=== PATIENT | female | born 1990 | race American Indian/Alaskan Native ===

== ENCOUNTER 2017-09-20 11:00 | Emergency (ER) | payer OTHER, MEDICAID ==
[2017-09-20 11:14] VITALS: BP 115/68
--- NOTE | 2017-09-20 12:33 | Emergency Department Report ---
Blank Doc - Documentation Documentation: Patient is a 27-year-old Female who's had approximately 1 week of cough cold congestion. Patient states it hurts when she coughs. Patient states she also has mild sore throat and pain in her ribs. Patient is was started on amoxicillin initially by her EQUIPMENT OILER and switch to Z-Melecio. Patient also has been using albuterol inhaler and was given Tamiflu as well. Patient's lungs were clear to auscultation she is 100% on room air. I do not believe a chest x-ray is warranted at this time. However patient will get a Monospot and rapid strep to see if either one of these will be positive.
--- NOTE | 2017-09-20 14:22 | XRay Report ---
ROUTINE CHEST, TWO VIEWS: HISTORY: Cough. The trachea, heart, mediastinal contour, lung ayala and bony thorax are unremarkable. IMPRESSION: Unremarkable chest x-ray.
--- NOTE | 2017-09-20 14:58 | Emergency Department Report ---
Minor Respiratory - HPI Chief Complaint: Upper Respiratory Infection Stated Complaint: COUGH Time Seen by Provider: 09/20/17 12:22 Duration: 1 week Pain Location: Other (cough) Minor Respiratory: Yes Rhinorrhea (nasal congestion, PND), Yes Able to Tolerate Fluids, Yes Cough (1 week), No Ear Pain, No Sick Contacts, No Hemoptysis, No Chest Pain, No Shortness of Breath, No Fever Other History: This is a 27-year-old female sent here from her PEDIATRIC PHYSICIAN ASSISTANT office that saw her at 9 this morning. Patient has been treated with amoxicillin for 3 days and was stopped and started on Zithromax which she says she took 4 days and her last status tomorrow. She says she's been taking this for cough for one week and her cough is not getting better. She denies any fever or chills. Denies any nausea or vomiting. Patient is 21 weeks and she is not having any problem with her . She denies any abdominal pain vaginal bleeding or vaginal discharge. When asked, babies moving appropriately. Patient says PEDIATRIC PHYSICIAN ASSISTANT sent her over here for a chest x-ray due to ongoing coughing. She is also taking loratadine and Benzonate. She denies also taking albuterol that was prescribed by her PEDIATRIC PHYSICIAN ASSISTANT. Patient reports that she was given Tamiflu but she did not R was not tested for the flu. Patient denies any pain. ED Review of Systems ROS: Stated complaint: COUGH Other details as noted in HPI Comment: All other systems reviewed and negative Constitutional: no symptoms reported Eyes: denies: eye pain, eye discharge ENT: congestion. denies: ear pain, throat pain, dental pain, epistaxis Respiratory: cough. denies: orthopnea, shortness of breath, SOB with exertion, SOB at rest, stridor, wheezing Cardiovascular: denies: chest pain, palpitations, dyspnea on exertion, edema, syncope, paroxysmal nocturnal dyspnea Gastrointestinal: denies: abdominal pain, nausea, vomiting, diarrhea, constipation, hematemesis, melena, hematochezia Genitourinary: denies: urgency, dysuria, frequency, hematuria, discharge Musculoskeletal: denies: back pain, arthralgia, myalgia Skin: denies: rash Neurological: denies: headache, weakness, paresthesias, confusion, abnormal gait ED Past Medical Hx - Past Medical History Previous Medical History?: No - Surgical History Past Surgical History?: No - Family History Family history: no significant - Social History Smoking Status: Never Smoker Substance Use Type: None - Medications Home Medications: Home Medications Medication Instructions Recorded Confirmed Last Taken Type Cetirizine HCl [ZyrTEC] 10 mg PO QAM 7 Days #7 capsule 09/20/17 Unknown Rx Sodium Chloride [Nasal [place]] 90 ml NS TID PRN #1 spray 09/20/17 Unknown Rx predniSONE [Deltasone] 10 mg PO QDAY 5 Days #5 tab 09/20/17 Unknown Rx Minor Respiratory Exam - Exam General: Vital signs noted. No distress. Alert and acting appropriately. This is a 27-year-old female well-nourished well-developed in no acute distress. Patient is nontoxic in appearance HEENT: Yes Moist Mucous Membranes, No Pharyngeal Erythema (uvula is midline and oral airways patent), No Pharyngeal Exudates (no peritonsillar abscess), No Rhinorrhea (Nasal congestion and erythema), No Conjuctival Injection, No Frontal Tenderness, No Maxillary Tenderness Ear: Neither TM Bulge (bilateral TM congested), Neither TM Erythema, Neither EAC Pain, Neither EAC Discharge Neck: Yes Supple (full range of motion), No Adenopathy Lungs: Yes Good Air Exchange, Yes Cough (dry cough), No Wheezes, No Ronchi, No Stridor, No Labored Respirations, No Retractions, No Use of Accessory Muscles, No Other Abnormal Lung Sounds Heart: Yes Regular (S1, S2), No Murmur Abdomen: Yes Tenderness (nontender to palpate in all quadrants, no guarding or rebound tenderness), Yes Normal Bowel Sounds (in all quadrants), No Peritoneal Signs Skin: No Rash, No Edema Neurologic: Alert and oriented 3, no deficits. Musculoskeletal: Unremarkable. Extremity: No clubbing, cyanosis or edema. +2 pulses to all extremities and no neurovascular compromise ED Course Vital Signs 09/20/17 11:09 Temperature 98.4 F Pulse Rate 105 H Respiratory 18 Rate Blood Pressure 115/68 O2 Sat by Pulse 100 Oximetry Vital Signs 09/20/17 09/20/17 11:09 15:12 Temperature 98.4 F Pulse Rate 105 H 92 H Respiratory 18 Rate Blood Pressure 115/68 O2 Sat by Pulse 100 Oximetry - Reevaluation(s) Reevaluation #1: 09/20/17 15:02 Patient stable throughout ED stay ED Medical Decision Making - Lab Data Lab Results 09/20/17 09/20/17 Range/Units 12:34 13:00 Monoscreen Negative (Negative) Group A Strep Rapid Negative (Negative) Strep culture pending - Radiology Data Radiology results: report reviewed Chest x-ray reveals no acute cardiopulmonary processes - Medical Decision Making ED course: Patient sent from PEDIATRIC PHYSICIAN ASSISTANT office for chest x-ray due to prolonged coughing for over a week. She's been on multiple antibiotics, cough medicine, Claritin, albuterol and says that she is not getting relief of cough. Physical findings were upper respiratory infection with cough and congestion. I discussed diagnosis and treatment plan the patient. I discussed that she needs to call Dr. Fabian Gaytan at my P[facility]IATR[facility] PHYSICIAN [facility]IST[facility] for that are no findings in the emergency room. I discussed her strep and mono test results with her and also x-ray results. Patient is stable. Patient to call her PEDIATRIC PHYSICIAN ASSISTANT and schedule an appointment follow-up visit in 1 day. I discussed treatment plan with her and told her I will switch her to Zyrtec and place her on 5 days worth of prednisone. I discussed this case with Dr. Eladio Bhagat who is the attending ED physician and she saw patient's and agrees with treatment plan. Critical care attestation.: If time is entered above; I have spent that time in minutes in the direct care of this critically ill patient, excluding procedure time. ED Disposition Clinical Impression: Upper respiratory infection with cough and congestion Disposition: DC-01 TO HOME OR SELFCARE Is pt being admited?: No Does the pt Need Aspirin: No Condition: Stable Instructions: Upper Respiratory Infection (ED), Acute Cough (ED) Additional Instructions: Please increase her fluid intake Flush nostrils with saline nasal spray Please call your PEDIATRIC PHYSICIAN ASSISTANT office tomorrow or this event and schedule an appointment for follow-up visit tomorrow. Stop taking loratadine and start taking Zyrtec and prednisone as prescribed Prescriptions: Cetirizine HCl [ZyrTEC] 10 mg PO QAM 7 Days #7 capsule predniSONE [Deltasone] 10 mg PO QDAY 5 Days #5 tab Sodium Chloride [Nasal [place]] 90 ml NS TID PRN #1 spray PRN Reason: Congestion Referrals: follow up with, PEDIATRIC PHYSICIAN ASSISTANT [Other] - 09/21/17 Forms: Accompanied Note, Work/School Release Form(ED)
== END 2017-09-20 15:59 | disposition home or self-care (01) ==
LOC: ED 11:00
DX: J06.9 Acute upper respiratory infection, unspecified (principal); Z88.2 Allergy status to sulfonamides
CPT/HCPCS: 36415; 71046; 86308; 87116; 87430

== ENCOUNTER 2018-01-16 11:59 | Outpatient (CLI) | payer MEDICAID, OTHER ==
[2018-01-16 12:46] VITALS: BP 126/87
== END 2018-01-16 13:40 | disposition home or self-care (01) ==
LOC: TRG 11:59
PROVIDERS: ATTEND Obstetrics & Gynecology
DX: O47.1 False labor at or after 37 completed weeks of gestation (principal); Z3A.38 38 weeks gestation of pregnancy
CPT/HCPCS: 59025

== ENCOUNTER 2018-01-16 18:41 | Inpatient (IN) | payer MEDICAID ==
[2018-01-16] MEDS ORDERED: SUBLIMAZE IV PRN (18:45)
[2018-01-16] MEDS ORDERED: MINERAL OIL PO PRN (18:45)
[2018-01-16] MEDS ORDERED: BRETHINE IVP PRN (18:45)
[2018-01-16] MEDS ORDERED: NARCAN 0.4 MG/1 ML IV PRN (18:45)
[2018-01-16] MEDS ORDERED: BRETHINE SUB-Q PRN (18:45)
[2018-01-16] MEDS ORDERED: XYLOCAINE 2% INFILTRATI ONE (18:45)
[2018-01-16] MEDS ORDERED: ZOFRAN IV PRN (18:45)
[2018-01-16] MEDS ORDERED: PITOCin/NS 30 UNIT/500ML 30 UNITS/500 ML BAG IV SCH (19:00)
[2018-01-16] MEDS ORDERED: LACTATED RINGERS 1,000 ML ONE (19:04)
[2018-01-16] MEDS ORDERED: STADOL IV PRN (19:08)
[2018-01-16] MEDS: LACTATED RINGERS 1,000 ML IV SCH ×2 (19:11→20:33)
[2018-01-16] MEDS ORDERED: ePHEDrine SULFATE IV PRN ×2 (19:45→20:57)
[2018-01-16 20:09] LABS: Hematocrit 37.6 % (30.3-42.9); Hemoglobin 12.5 gm/dl (10.1-14.3); Mean Corpuscular HGB Conc 33 % (30-34); Mean Corpuscular Hemoglobin 32 pg (28-32); Mean Corpuscular Volume 96 fl (79-97); Platelet Count 143 K/mm3 (140-440); Red Cell Distribution Width 14.2 % (13.2-15.2)
[2018-01-16] MEDS ORDERED: NARCAN 2 MG/2 ML IV PRN (20:57)
[2018-01-16] MEDS ORDERED: fentaNYL-BUPIV 2 MCG/ML-0.125% 200 MCG/100 ML BAG EPIDURAL SCH (21:00)
--- NOTE | 2018-01-16 21:35 | History and Physical Report ---
History of Present Illness Date of examination: 01/16/18 Date of admission: 01/16/18 18:41 Chief complaint: contractions History of present illness: Pt is a 27 year old -[place] female VIKTOR 01/31/18 at 37w6d who presents with regular contractions and advanced cervical dilation of 5 cm. She denies leakage of fluid or vaginal bleeding. She has had care at [facility] since 7 wks complicated by UTI s/p treatment, genital herpes without lesion or prodrome, pyelectasis followed by MFM and LGA followed by MFM and resolved per MFM note on 12/06/17. She is GBS negative. 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 History: chlamydia (remote from this , treated ), herpes Family/Genetic History: none Social history: no significant social history - Obstetrical History Expected Date of Delivery: 01/31/18 Actual Gestation: 37 Week(s) 6 Day(s) : 5 Para: 0 Hx # Term Pregnancies: 0 Number of Pregnancies: 0 Spontaneous Abortions: 0 Induced : 4 Number of Living Children: 0 Medications and Allergies Allergies Allergy/AdvReac Type Severity Reaction Status Date / Time Sulfa (Sulfonamide Allergy Unknown Verified 09/20/17 11:14 Antibiotics) Home Medications Medication Instructions Recorded Confirmed Last Taken Type Cetirizine HCl [ZyrTEC] 10 mg PO QAM 7 Days #7 capsule 09/20/17 01/16/18 1 Day Ago Rx ~01/15/18 Pnv,Calcium 72/Iron/Folic Acid 1 tab PO DAILY 01/16/18 01/16/18 01/16/18 History [Pnv Plus Multivit Tab] 1 Active Meds: Active Medications Butorphanol Tartrate (Stadol) 2 mg IV Q2H PRN PRN Reason: Pain , Severe (7-10) Ephedrine Sulfate (Ephedrine Sulfate) 10 mg IV Q2M PRN PRN Reason: Hypotension Last Admin: 01/16/18 20:48 Dose: 10 mg Ephedrine Sulfate (Ephedrine Sulfate) 10 mg IV Q2M PRN PRN Reason: Hypotension Fentanyl (Sublimaze) 100 mcg IV Q2H PRN PRN Reason: Labor Pain Last Admin: 01/16/18 19:30 Dose: 100 mcg Lactated Ringer's (Lactated Ringers) 1,000 mls @ 125 mls/hr IV DIRECT CIERRA Last Admin: 01/16/18 20:33 Dose: 125 mls/hr Oxytocin/Sodium Chloride (Pitocin/Ns 20 Unit/1000ml Drip) 20 units in 1,000 mls @ 125 mls/hr IV DIRECT CIERRA Oxytocin/Sodium Chloride (Pitocin/Ns 30 Unit/500ml) 30 units in 500 mls @ 4 mls /hr IV TITR CIERRA; Protocol Fentanyl/Bupivacaine/Sodium Chlor (Fentanyl-Bupiv 2 Mcg/Ml-0.125%) 200 mcg in 100 mls @ 12 mls/hr EPIDURAL TITR CIERRA; Protocol Mineral Oil (Mineral Oil) 30 ml PO QHS PRN PRN Reason: Constipation Naloxone HCl (Narcan 0.4 Mg/1 Ml) 0.1 mg IV Q2MIN PRN PRN Reason: Res Rate </= 8 or 02 SAT < 92% Naloxone HCl (Narcan 2 Mg/2 Ml) 0.2 mg IV Q5M PRN PRN Reason: Respiratory sedation Ondansetron HCl (Zofran) 4 mg IV Q8H PRN PRN Reason: Nausea And Vomiting Terbutaline Sulfate (Brethine) 0.25 mg SUB-Q ONCE PRN PRN Reason: Hyperstimulation/Hypertonicity Terbutaline Sulfate (Brethine) 0.25 mg IVP ONCE PRN PRN Reason: Hyperstimulation/Hypertonicity Review of Systems All systems: negative - Vital Signs Vital signs: Vital Signs Pulse BP 73 134/76 01/16/18 19:49 01/16/18 19:49 Temp Pulse Resp BP Pulse Ox 98.8 F 95 H 20 135/70 99 01/16/18 19:50 01/16/18 21:37 01/16/18 19:50 01/16/18 21:31 01/16/18 21:37 - Physical Exam Breasts: Positive: deferred Cardiovascular: Regular rate Lungs: Positive: Clear to auscultation Abdomen: Positive: soft (gravid ) Genitourinary (Female): Positive: normal external genitalia Uterus: Positive: enlarged (gravid ) Extremities: Positive: normal - Obstetrical FHR: auscultation normal Uterine Contraction Monitor Mode: External Cervical Dilatation: 5 Cervical Effacement Percentage: 100 station: -1 Uterine Contraction Pattern: Regular Uterine Tone Measurement Phase: Resting Uterine Contraction Intensity: Strong/Firm Results Result Diagrams: 01/16/18 Unknown Abnormal lab results 01/16/18 Range/Units Unknown WBC 11.3 H (4.5-11.0) K/mm3 All other labs normal. Assessment and Plan A: IUP at 37w6d Active labor Thrombocytopenia Genital herpes without lesion or prodrome GBS negative P: Admit to labor and delivery Routine intrapartum care Closely monitor maternal and status
--- NOTE | 2018-01-16 22:09 | Event Note ---
Date: 01/16/18 Pt now comfortable with epidural. FHTs Category I. SVE: /0/BBOW. AROM- thick green meconium. Continue routine intrapartum care. Plan to notify NICU.
[2018-01-17] MEDS: LACTATED RINGERS 1,000 ML IV SCH (02:40)
[2018-01-17] MEDS ORDERED: REGLAN IV ONE (03:09)
[2018-01-17] MEDS ORDERED: BICITRA PO ONE (03:09)
[2018-01-17] MEDS ORDERED: PEPCID IV ONE (03:09)
--- NOTE | 2018-01-17 03:09 | Event Note ---
Date: 01/17/18 Despite being complete for over 5 hours, the patient remains undelivered at +2 station with no further descent for an hour. Plan to proceed with primary section.
[2018-01-17] MEDS ORDERED: METHERGINE IM ONE (03:36)
[2018-01-17] MEDS ORDERED: CYTOTEC VG ONE (03:36)
[2018-01-17] MEDS ORDERED: LACTATED RINGERS 1,000 ML IV SCH (04:00)
[2018-01-17] MEDS ORDERED: PITOCin/NS 20 UNIT/1000ML DRIP 20 UNITS/1,000 ML BAG IV SCH ×2 (04:00→12:00)
[2018-01-17] MEDS ORDERED: ANCEF/STERILE WATER 2 GM/20 ML 2 GM/20 ML SYRINGE IV NR (04:00)
[2018-01-17] MEDS ORDERED: SUBLIMAZE ONE ×2 (04:05→04:59)
[2018-01-17] MEDS ORDERED: XYLOCAINE MPF 2% ONE ×3 (04:06→05:01)
[2018-01-17] MEDS ORDERED: LACTATED RINGERS 1,000 ML ONE (04:08)
[2018-01-17] MEDS ORDERED: TORADOL ONE (05:00)
[2018-01-17] MEDS: PITOCin/NS 20 UNIT/1000ML DRIP 20 UNITS/1,000 ML BAG IV SCH ×2 (05:45→07:00)
[2018-01-17] MEDS ORDERED: DEMEROL ONE (06:40)
--- NOTE | 2018-01-17 07:10 | Operative Report ---
Operative Report Operative Report: Date of procedure: 01/17/18 Preoperative diagnosis: 1) IUP at 38w0d 2) Arrest of Descent Postoperative diagnosis: Same Procedure: Primary low transverse section Surgeon: Evangelina Gaytan M.D. Anesthesia: Epidural Findings: 1) Viable male , Apgars 8 and 9, weight 3545 g, (7 lb 13 oz) in vertex presentation 2) Normal-appearing uterus ovaries and tubes Estimated blood loss: 500 mL IV fluids: 1000 mL Urine output: 300 mL Drains: Degroot to gravity Specimens: Placenta to pathology Complications: None. Counts correct x 3 Disposition: Stable to PACU Indication for procedure: Pt is a 27 year old female at 38w0d who was admitted in active labor, progressed to complete, but could not advance beyond +2 station despite adequate contractility over greater than one hour. The decision was made to proceed with primary section. Operation in detail: After the risks, benefits, alternatives and complications were explained to the patient she gave informed consent for the procedure. She was subsequently taken to the operating room where epidural anesthesia was noted to be adequate. She was subsequently placed in the dorsal supine position with leftward tilt and prepped and draped in a normal sterile fashion. heart tones were noted prior to incision. A timeout was performed. A Pfannenstiel skin incision was made with the knife and carried down to the layer of the fascia with the Bovie. The fascia was incised in the midline and the fascial incision was extended bilaterally with the Bovie. Attention was then turned to the superior aspect of the incision which was grasped with two Kochers, tented up, and dissected off the rectus muscles. Attention was then turned to the inferior aspect of the incision which was grasped with two Kochers , tented up and dissected off the rectus muscles. The rectus muscles were then in the midline. The peritoneum was then entered bluntly. The peritoneal incision was extended with good visualization of the bladder. The peritoneal incision was then stretched. An Stewart self-retaining retractor was placed for visualization. The bladder blade was placed. The vesicouterine peritoneum was grasped with smooth pickups and incised with Metzenbaum scissors. Metzenbaum scissors were used to extend the incision bilaterally. The bladder flap was then created digitally and the bladder blade was replaced. A transverse incision was made in the lower uterine segment with a knife and extended bilaterally with the bandage scissors. The head was delivered without difficulty followed by shoulders and body. was bulb suctioned at delivery. The cord was clamped and cut and the was handed to NICU staff in attendance. Cord blood was collected. The placenta was then delivered manually. The uterus was then exteriorized and cleared of all clots and debris. The hysterotomy was then reapproximated with 0 Vicryl in a running locked fashion. A second layer of the same suture was used in imbricating fashion. The hysterotomy was inspected and hemostasis was noted. The Stewart self-retaining retractor was removed. The gutters were irrigated and cleared of all clots and debris. The hysterotomy was again inspected and noted to be hemostatic. Surgicel was placed over the hysterotomy. The peritoneum was reapproximated with 2-0 Vicryl in a running fashion incorporating the rectus muscles. The fascia was reapproximated with 0 Vicryl in a running fashion. The subcutaneous tissue was reapproximated with 3-0 Vicryl in a running fashion. The skin was reapproximated with 4-0 Vicryl in a subcuticular fashion. The incision was then covered with steri strips and a pressure dressing. The procedure was then ended. The patient tolerated the procedure well and was taken to the PACU in stable condition. All instrument, lap, and needle counts were correct 3.
--- NOTE | 2018-01-17 07:10 | Procedure Note ---
OB Delivery Note - Delivery Date of Delivery: 01/17/18 Surgeon: JAYE NOONAN Estimated blood loss: 500cc - Section Preop diagnosis: arrest of descent Postop diagnosis: same section procedure: section, primary low transverse Disposition: PACU Complications: none Narrative: Please see operative note. - A at 1 minute: 8 at 5 minutes: 9 Gender: Male (3545g (7lb 13oz) @ 0431 am)
[2018-01-17] MEDS ORDERED: DILAUDID IV ONE (11:00)
[2018-01-17] MEDS ORDERED: LANSINOH TP PRN (11:31)
[2018-01-17] MEDS ORDERED: TUCKS PAD TP PRN (11:31)
[2018-01-17] MEDS ORDERED: NARCAN 0.4 MG/1 ML IV PRN (11:31)
[2018-01-17] MEDS ORDERED: TYLENOL PO PRN (11:31)
[2018-01-17] MEDS ORDERED: SODIUM CHLORIDE FLUSH SYRINGE 10 ML IV NR (12:00)
[2018-01-17] MEDS ORDERED: D5LR 1,000 ML IV SCH (12:00)
--- NOTE | 2018-01-17 12:28 | Progress Note ---
Assessment and Plan - Patient Problems (1) delivery delivered Current Visit: Yes Status: Acute (2) Febrile Current Visit: Yes Status: Acute Plan to address problem: Initiate IV antibiotics and improved pain control Subjective - Subjective Date of service: 01/17/18 Interval history: The patient is tolerating ice chips and water. She denies any nausea. Pain has not been adequately controlled. The patient experience mildly elevated temperatures and will subsequently be initiated on antibiotics Patient reports: no pain well controlled : doing well Objective - Vital Signs Latest vital signs: Vital Signs Temp Pulse Resp BP BP Pulse Ox 01/17/18 11:01 16 01/17/18 07:20 99.3 F 95 H 18 125/77 95 01/17/18 06:40 99.5 F 89 13 124/79 97 01/17/18 06:35 100 H 19 127/77 98 01/17/18 06:25 94 H 18 125/763 98 01/17/18 06:20 97 H 18 124/80 98 01/17/18 06:05 98 H 19 126/76 99 01/17/18 05:50 96 H 18 128/82 100 18 05:35 97 H 19 128/82 100 18 05:30 103 H 19 127/77 99 18 05:28 99.2 F 14 125/67 01/17/18 03:46 114 H 135/63 18 03:31 129 H 127/69 18 03:29 131 H 100 01/17/18 03:24 115 H 98 01/17/18 03:19 117 H 97 18 03:16 109 H 129/75 18 03:14 119 H 97 18 03:09 120 H 100 18 03:07 119 H 90 01/17/18 03:04 108 H 100 01/17/18 03:01 103 H 140/63 18 02:59 106 H 100 18 02:54 116 H 100 18 02:49 137 H 100 18 02:43 111 H 60 L 01/17/18 02:42 117 H 0 L 01/17/18 02:38 121 H 100 01/17/18 02:33 119 H 100 18 02:31 103 H 135/73 01/17/18 02:28 121 H 100 01/17/18 02:23 112 H 100 18 02:18 113 H 100 01/17/18 02:15 112 H 136/75 01/17/18 02:13 115 H 99 01/17/18 02:08 110 H 100 01/17/18 02:03 110 H 100 01/17/18 02:01 49 L 01/17/18 02:00 99.4 F 01/17/18 01:58 133 H 61 L 01/17/18 01:55 108 H 89 01/17/18 01:53 124 H 100 01/17/18 01:48 142 H 99 01/17/18 01:47 127 H 133/66 01/17/18 01:43 89 79 L 01/17/18 01:39 37 L 01/17/18 01:38 94 H 81 L 01/17/18 01:32 111 H 100 01/17/18 01:30 113 H 103/56 01/17/18 01:27 109 H 100 01/17/18 01:22 104 H 98 01/17/18 01:17 104 H 100 01/17/18 01:15 101 H 105/59 01/17/18 01:12 101 H 100 01/17/18 01:07 102 H 100 01/17/18 01:02 104 H 100 01/17/18 01:01 107 H 107/55 01/17/18 00:57 110 H 100 01/17/18 00:52 103 H 100 01/17/18 00:47 109 H 100 01/17/18 00:46 101 H 105/55 18 00:42 112 H 100 18 00:37 116 H 100 18 00:32 114 H 100 18 00:31 107 H 119/64 18 00:27 109 H 100 18 00:22 121 H 100 18 00:17 123 H 99 18 00:16 114 H 119/70 01/17/18 00:12 104 H 100 18 00:07 105 H 100 01/17/18 00:02 103 H 100 01/17/18 00:01 97 H 120/71 01/17/18 00:00 99.7 F H 20 18 23:57 112 H 99 18 23:52 103 H 99 18 23:47 102 H 99 18 23:46 109 H 125/78 18 23:42 108 H 100 18 23:37 95 H 99 18 23:32 113 H 99 01/16/18 23:31 96 H 134/79 01/16/18 23:27 95 H 98 18 23:22 95 H 99 18 23:17 94 H 134/78 99 01/16/18 23:12 92 H 99 01/16/18 23:07 92 H 100 01/16/18 23:02 92 H 99 01/16/18 23:01 89 136/76 01/16/18 22:57 86 99 01/16/18 22:52 110 H 100 01/16/18 22:49 82 88 01/16/18 22:47 95 H 100 01/16/18 22:46 88 119/73 18 22:42 89 98 01/16/18 22:37 94 H 99 01/16/18 22:32 87 99 01/16/18 22:30 88 125/75 01/16/18 22:27 94 H 100 01/16/18 22:22 90 100 18 22:17 87 99 01/16/18 22:16 79 133/77 01/16/18 22:12 92 H 100 01/16/18 22:07 96 H 100 01/16/18 22:02 99 H 100 01/16/18 22:00 98.6 F 78 127/73 01/16/18 21:57 91 H 96 18 21:52 108 H 100 18 21:47 104 H 100 18 21:46 81 116/73 01/16/18 21:42 105 H 99 18 21:37 95 H 99 18 21:32 91 H 99 18 21:31 84 135/70 01/16/18 21:27 73 100 01/16/18 21:22 77 100 01/16/18 21:17 83 122/74 100 01/16/18 21:12 82 100 01/16/18 21:09 88 118/62 01/16/18 21:07 91 H 118/60 100 01/16/18 21:05 83 127/74 01/16/18 21:03 82 134/75 01/16/18 21:02 84 96 01/16/18 21:01 82 139/74 01/16/18 20:59 72 139/74 01/16/18 20:57 78 137/74 97 01/16/18 20:55 69 141/74 01/16/18 20:53 85 115/63 01/16/18 20:52 87 99 01/16/18 20:51 96 H 112/63 01/16/18 20:49 103 H 117/62 01/16/18 20:47 99 H 99 01/16/18 20:45 93 H 125/78 01/16/18 20:42 97 H 98 01/16/18 20:37 103 H 98 01/16/18 20:32 96 H 98 01/16/18 20:27 98 H 97 01/16/18 19:50 98.8 F 73 20 134/76 01/16/18 19:49 73 134/76 Intake and Output 01/16/18 01/17/18 01/17/18 22:59 06:59 14:59 Intake Total 071.445 5822.583 356.25 Output Total 400 100 Balance 160.827 6236.583 256.25 Intake: IV 381.345 2577.583 281.25 Lactated Ringers 1,000 ml 170.833 764.583 @ 125 mls/hr IV DIRECT CIERRA Rx#:[id number] Left Wrist 125 PITOCin/NS 20 UNIT/1000ML 156.25 DRIP 20 units In 1,000 ml @ 125 mls/hr IV DIRECT CIERRA Rx#:[id number] Oral 75 Output: Urine 400 100 Uretheral (Degroot) 100 Other: Total, Intake Amount 75 Weight 77.111 kg - Exam Incision: Present: dressed - Labs Labs: Abnormal lab results 01/16/18 Range/Units Unknown WBC 11.3 H (4.5-11.0) K/mm3
[2018-01-17] MEDS: UNASYN/NS 3 GM/100 ML 3 GM/100 ML BAG IV SCH ×2 (12:46→19:00)
[2018-01-17] MEDS: TORADOL IV PRN (12:56)
[2018-01-17] MEDS: PERCOCET 5/325 PO PRN ×2 (17:07→21:30)
[2018-01-17 23:12] LABS: Hematocrit 33.3 % (30.3-42.9); Hemoglobin 11.3 gm/dl (10.1-14.3)
[2018-01-18] MEDS: UNASYN/NS 3 GM/100 ML 3 GM/100 ML BAG IV SCH ×4 (00:28→20:20)
[2018-01-18] MEDS: TORADOL IV PRN (00:31)
[2018-01-18] MEDS: PERCOCET 5/325 PO PRN ×2 (09:02→15:00)
--- NOTE | 2018-01-18 12:19 | Progress Note ---
Assessment and Plan A/P POD1 s/p csec FTP chorio-endomyometritis on unasyn continue present mgt Subjective - Subjective Date of service: 01/18/18 Principal diagnosis: s/p csec/ chorio Patient reports: appetite normal, voiding normally, pain well controlled, ambulating normally, no flatus : doing well Objective - Vital Signs Latest vital signs: Vital Signs Temp Pulse Resp BP BP Pulse Ox 01/18/18 09:01 99.7 F H 98 H 20 130/84 97 01/18/18 04:30 98.2 F 114 H 20 113/78 96 01/18/18 00:31 18 01/17/18 23:24 98.9 F 109 H 20 123/72 97 01/17/18 21:30 18 01/17/18 20:25 99.1 F 111 H 20 112/76 98 01/17/18 18:05 99.4 F 112 H 20 125/87 98 01/17/18 12:52 99.0 F 116 H 18 125/85 97 Intake and Output 01/17/18 01/18/18 01/18/18 23:59 07:59 15:59 Intake Total 220 340 Output Total 1900 1200 Balance -1680 -860 Intake: IV 100 100 UNASYN/NS 3 GM/100 ML 3 100 100 gm In 100 ml @ 200 mls/hr IV Q6HR [facility] Rx#: [id number] Oral 120 240 Output: Urine 1900 1200 Indwelling Catheter 900 Uretheral (Degroot) 400 Void 400 1200 Other: Total, Intake Amount 120 240 Total, Output Amount 400 600 Voiding Method Indwelling Catheter # Voids Void 1 2 - Exam Breasts: Present: normal Cardiovascular: Present: Regular rate, Normal S1 Lungs: Present: Clear to auscultation, Normal air movement Abdomen: Present: normal appearance, soft, normal bowel sounds. Absent: distention, tenderness, guarding Vulva: both: normal Uterus: Present: normal, firm, fundal height below umbilicus. Absent: bogginess , tenderness Extremities: Present: normal Deep Tendon Reflex Grade: Normal +2 Incision: Present: normal, dry, intact, dressed
[2018-01-18] MEDS: MOTRIN PO PRN (18:30)
[2018-01-19] MEDS: UNASYN/NS 3 GM/100 ML 3 GM/100 ML BAG IV SCH ×4 (02:21→22:05)
[2018-01-19] MEDS: PERCOCET 5/325 PO PRN ×3 (06:15→16:07)
--- NOTE | 2018-01-19 08:10 | Progress Note ---
Assessment and Plan A/P POD2 s/p csec FTP has some pain -around clock pain meds encourage IS and ambulation mag citrate for bowels chorio-endomyometritis on unasyn continue present mgt Subjective - Subjective Date of service: 01/19/18 Principal diagnosis: s/p csec/ chorio Patient reports: appetite normal, voiding normally, pain well controlled, ambulating normally, no flatus [place]: doing well Objective - Vital Signs Latest vital signs: Vital Signs Temp Pulse Resp BP Pulse Ox 01/19/18 00:00 98.7 F 64 16 104/69 01/18/18 16:37 98.0 F 114 H 20 124/87 98 01/18/18 09:01 99.7 F H 98 H 20 130/84 97 Intake and Output 01/18/18 01/19/18 01/19/18 23:59 07:59 15:59 Intake Total 340 300 Balance 340 300 Intake: IV 100 UNASYN/NS 3 GM/100 ML 3 100 gm In 100 ml @ 200 mls/hr IV Q6HR [facility] Rx#: [id number] Oral 240 Intake, Free Water 300 Other: Total, Intake Amount 240 # Voids Void 1 - Exam Breasts: Present: normal Cardiovascular: Present: Regular rate, Normal S1 Lungs: Present: Clear to auscultation, Normal air movement Abdomen: Present: normal appearance, soft, normal bowel sounds. Absent: distention, tenderness, guarding Vulva: both: normal Uterus: Present: normal, firm, fundal height below umbilicus. Absent: bogginess Extremities: Present: normal Deep Tendon Reflex Grade: Normal +2 Incision: Present: normal, dry, intact
[2018-01-19 08:38] LABS: Basophils % (Auto) 0.4 % (0.0-1.8); Eosinophils # (Auto) 0.1 K/mm3 (0.0-0.4); Eosinophils % (Auto) 1.2 % (0.0-4.3); Hematocrit 30.9 % (30.3-42.9); Hemoglobin 10.6 gm/dl (10.1-14.3); Lymphocytes # (Auto) 1.5 K/mm3 (1.2-5.4); Mean Corpuscular HGB Conc 34 % (30-34); Mean Corpuscular Hemoglobin 33 pg (28-32); Mean Corpuscular Volume 96 fl (79-97); Monocytes # (Auto) 0.6 K/mm3 (0.0-0.8); Monocytes % (Auto) 6.2 % (0.0-7.3); Platelet Count 158 K/mm3 (140-440); Red Blood Count 3.21 M/mm3 (3.65-5.03)
[2018-01-19] MEDS ORDERED: CITRATE OF MAGNESIA PO NR (09:00)
[2018-01-19] MEDS: MOTRIN PO PRN (16:07)
[2018-01-20] MEDS: UNASYN/NS 3 GM/100 ML 3 GM/100 ML BAG IV SCH ×3 (04:10→22:30)
[2018-01-20] MEDS: MYLICON PO PRN ×4 (04:51→22:19)
[2018-01-20] MEDS: PERCOCET 5/325 PO PRN ×3 (04:51→22:23)
[2018-01-20] MEDS: MOTRIN PO PRN (13:50)
--- NOTE | 2018-01-20 16:23 | Progress Note ---
Assessment and Plan A: POD# 3 s/p primary section at term, Chorioamnionitis on Unasyn, Delayed return of bowel function P: Encourage ambulation. Magnesium citrate. Anticipate discharge tomorrow. Subjective - Subjective Date of service: 01/20/18 Principal diagnosis: s/p csec/ chorio Interval history: Pt c/o lower extremity edema. + flatus- minimal. Patient reports: appetite normal, voiding normally, pain well controlled, flatus , ambulating normally, no bowel movement [place]: doing well Objective - Vital Signs Latest vital signs: Vital Signs Temp Pulse Resp BP BP Pulse Ox 01/20/18 00:35 97.5 F L 87 20 128/84 98 01/19/18 18:06 98.7 F 90 20 128/84 95 Intake and Output 01/20/18 01/20/18 01/20/18 06:59 14:59 22:59 Intake Total 480 Balance 480 Intake: Oral 480 Other: Total, Intake Amount 240 # Voids Void 1 - Exam Breasts: Present: deferred Cardiovascular: Present: Regular rate Lungs: Present: Clear to auscultation Abdomen: Present: soft, distention, abnormal bowel sounds (hypoactive ) Uterus: Present: fundal height at umbilicus Extremities: Present: normal Incision: Present: intact
--- NOTE | 2018-01-20 16:30 | Discharge Summary ---
Providers - Providers Date of Admission: 01/16/18 18:41 Date of discharge: 01/21/18 Attending physician: JAYE GAYTAN Primary care physician: JAYE GAYTAN Hospitalization Reason for admission: active labor Delivery: Procedure: section, primary low transverse Procedure details: Please see operative note. Incision: intact Other procedures: none complications: none Discharge diagnosis: IUP at term delivered baby: male Hospital course: The patient was admitted in active labor. She subsequently experienced arrest of descent and underwent a primary section was tolerated well. She did develop thank you chorioamnionitis and was placed on IV antibiotics. She remained hospitalized until postoperative day #4 she met discharge criteria. She will follow-up in 2 weeks in the office of Dr. Gaytan. Condition at discharge: Stable Disposition: -01 TO HOME OR SELFCARE - Discharge Diagnoses (1) Chorioamnionitis in third trimester Status: Acute Qualifiers: Fetus number: single or unspecified fetus Qualified Code(s): O41.1230 - Chorioamnionitis, third trimester, not applicable or unspecified (2) Anemia Status: Acute Qualifiers: Anemia type: unspecified type Qualified Code(s): D64.9 - Anemia, unspecified (3) delivery delivered Status: Acute Plan - Discharge Medications Prescriptions: Amoxicillin/Potassium Clav [Augmentin 875-125 Tablet] 1 each PO BID #14 tablet Ibuprofen [Motrin] 800 mg PO Q8HR PRN #30 tablet PRN Reason: Pain, Moderate (4-6) oxyCODONE /ACETAMINOPHEN [Percocet 5/325] 1 tab PO Q6HR PRN #40 tablet PRN Reason: Pain - Provider Discharge Summary Activity: routine, no sex for 6 weeks, no heavy lifting 4 weeks, no strenuous exercise Diet: routine Instructions: routine Additional instructions: [] Smoking cessation referral if applicable(refer to patient education folder for contact #) [] Refer to [employer] [employer] [facility] Booklet Call your doctor immediately for: * Fever > 100.5 * Heavy vaginal bleeding ( >1 pad per hour) * Severe persistent headache * Shortness of breath * Reddened, hot, painful area to leg or breast * Drainage or odor from incision. * Keep incision clean and dry at all times and follow doctor's instructions regarding bathing/showering Please schedule your son's circumcision prior to him being 1-month-old - Follow up plan Follow up: JAYE GAYTAN MD [Primary Care Provider] - 02/02/18 (please call the office for an appt for an incision check )
[2018-01-20] MEDS ORDERED: CITRATE OF MAGNESIA PO SCH (17:00)
[2018-01-20] MEDS: LASIX IV SCH (19:57)
[2018-01-21] MEDS: PERCOCET 5/325 PO PRN (04:57)
[2018-01-21] MEDS: UNASYN/NS 3 GM/100 ML 3 GM/100 ML BAG IV SCH (04:59)
[2018-01-21] MEDS: LASIX IV SCH (06:22)
[2018-01-21 12:54] VITALS: BP 138/86
== END 2018-01-21 11:30 | disposition home or self-care (01) | DRG 765 ==
LOC: LD 18:41 → OB 01-17 07:37
PROVIDERS: ADMIT Obstetrics & Gynecology; ATTEND Obstetrics & Gynecology
PROC: 10907ZC Drainage of Amniotic Fluid, Therapeutic from Products of Conception, Via Natural or Artificial Opening (ICD-10-PCS; 2018-01-16)
PROC: 10D00Z1 Extraction of Products of Conception, Low, Open Approach (ICD-10-PCS; principal; 2018-01-17)
DX: O36.63X0 Maternal care for excessive fetal growth, third trimester, not applicable or unspecified (principal); O41.1230 Chorioamnionitis, third trimester, not applicable or unspecified; O75.3 Other infection during labor; O99.12 Other diseases of the blood and blood-forming organs and certain disorders involving the immune mechanism complicating childbirth; D69.6 Thrombocytopenia, unspecified; Z79.899 Other long term (current) drug therapy; Z88.2 Allergy status to sulfonamides; Z3A.38 38 weeks gestation of pregnancy; Z37.0 Single live birth; O62.1 Secondary uterine inertia; O98.52 Other viral diseases complicating childbirth; B00.9 Herpesviral infection, unspecified; O77.0 Labor and delivery complicated by meconium in amniotic fluid; O23.40 Unspecified infection of urinary tract in pregnancy, unspecified trimester
CPT/HCPCS: 36415; 85014; 85018; 85025; 85027; 86592; 86850; 86900; 86901; 88307; 93970; 99211; A6250; G0463; J0295; J0690; J1170; J1885; J1940; J2175; J2210; J2590; J2765; J3010; J3105; J7120; J7121

== ENCOUNTER 2020-07-05 15:49 | Emergency (ER) | payer MEDICAID | END 2020-07-05 16:12 | LOC: ED 15:49 | DX: O26.892 Other specified pregnancy related conditions, second trimester (principal); R10.9 Unspecified abdominal pain; Z53.21 Procedure and treatment not carried out due to patient leaving prior to being seen by health care provider; Z3A.17 17 weeks gestation of pregnancy ==

== ENCOUNTER 2020-09-29 18:08 | Outpatient (CLI) | payer MEDICAID ==
[2020-09-29 19:30] VITALS: BP 122/69
[2020-09-29 20:10] LABS: Bilirubin,Urine NEG (Negative); Blood,Urine NEG (Negative); Color,Urine Yellow (Yellow); Mucus,Urine 3+ /HPF
[2020-09-29] MEDS ORDERED: LIDOCAINE-MPF (1%) 10 MG/1 ML VIAL 5 ML INFILTRATI ONE (20:58)
== END 2020-09-29 21:45 | disposition home or self-care (01) ==
LOC: TRG 18:08 → APU 18:10 → TRG 21:45
PROVIDERS: ATTEND Obstetrics & Gynecology
DX: O62.9 Abnormality of forces of labor, unspecified (principal); Z3A.29 29 weeks gestation of pregnancy
CPT/HCPCS: 59025; 81001; 96372; J0696

== ENCOUNTER 2020-10-14 16:46 | Outpatient (CLI) | payer OTHER ==
[2020-10-14 17:28] VITALS: BP 111/69
[2020-10-14] MEDS ORDERED: BETAMET ACET/BETAMET NA PH 6 MG/ML INJ 5 ML MDV IM SCH (18:00)
== END 2020-10-14 17:45 | disposition home or self-care (01) ==
LOC: TRG 16:46 → APU 16:47 → TRG 17:45
PROVIDERS: ATTEND Obstetrics & Gynecology
DX: Z34.80 Encounter for supervision of other normal pregnancy, unspecified trimester (principal); Z3A.00 Weeks of gestation of pregnancy not specified
CPT/HCPCS: 59025; J0702

== ENCOUNTER 2020-10-15 17:06 | Outpatient (CLI) | payer OTHER ==
[2020-10-15] MEDS ORDERED: BETAMET ACET/BETAMET NA PH 6 MG/ML INJ 5 ML MDV IM ONE (17:58)
[2020-10-15] MEDS ORDERED: LACTATED RINGERS 1,000 ML IV ONE (19:12)
[2020-10-15 21:23] VITALS: BP 100/62
== END 2020-10-15 22:00 | disposition home or self-care (01) ==
LOC: TRG 17:06 → APU 17:19 → TRG 22:00
PROVIDERS: ATTEND Obstetrics & Gynecology
DX: O60.03 Preterm labor without delivery, third trimester (principal); Z3A.32 32 weeks gestation of pregnancy
CPT/HCPCS: 36415; 59025; 82731; 96360; 96372; J0702; J7120

== ENCOUNTER 2020-10-20 13:23 | Outpatient (CLI) | payer OTHER ==
[2020-10-20 14:52] LABS: Hematocrit 32.5 % (30.3-42.9); Mean Corpuscular HGB Conc 34 % (30-34); Mean Corpuscular Volume 94 fl (79-97); Platelet Count 160 K/mm3 (140-440); Red Blood Count 3.44 M/mm3 (3.65-5.03); Red Cell Distribution Width 14.4 % (13.2-15.2)
[2020-10-20 15:09] LABS: Alanine Aminotransferase 8 units/L (7-56); Uric Acid 3.2 mg/dL (3.5-7.6)
[2020-10-20] MEDS ORDERED: LACTATED RINGERS 500 ML IV ONE (16:00)
[2020-10-20 16:14] LABS: Bacteria,Urine 1+ /HPF (Negative); Bilirubin,Urine NEG (Negative); Blood,Urine MOD (Negative); Color,Urine Straw (Yellow); Protein,Urine <15 mg/dL mg/dL (Negative); Urobilinogen,Urine < 2.0 mg/dL (<2.0)
[2020-10-20] MEDS ORDERED: TERBUTALINE 1 MG/1 ML INJ SUB-Q ONE (18:13)
[2020-10-20 18:22] VITALS: BP 110/60
[2020-10-20] MEDS ORDERED: TERBUTALINE 1 MG/1 ML INJ SUB-Q SCH (19:00)
== END 2020-10-20 18:40 | disposition home or self-care (01) ==
LOC: TRG 13:23 → APU 13:25 → TRG 18:40
PROVIDERS: ATTEND Obstetrics & Gynecology
DX: O26.893 Other specified pregnancy related conditions, third trimester (principal); R10.11 Right upper quadrant pain; O47.03 False labor before 37 completed weeks of gestation, third trimester; Z3A.32 32 weeks gestation of pregnancy
CPT/HCPCS: 36415; 59025; 81001; 82565; 83615; 84450; 84460; 84550; 85027; 96372; J3105; 96365

== ENCOUNTER 2020-10-30 12:07 | Outpatient (CLI) | payer OTHER ==
[2020-10-30] MEDS ORDERED: LACTATED RINGERS 500 ML IV ONE (13:52)
[2020-10-30] MEDS ORDERED: TERBUTALINE 1 MG/1 ML INJ SUB-Q ONE (14:43)
== END 2020-10-30 14:52 | disposition home or self-care (01) ==
LOC: APU 12:07 → TRG 12:07
PROVIDERS: ATTEND Obstetrics & Gynecology
DX: O60.03 Preterm labor without delivery, third trimester (principal); Z3A.34 34 weeks gestation of pregnancy
CPT/HCPCS: 59025; 96372; J3105; 96360

== ENCOUNTER 2020-11-07 11:05 | Outpatient (CLI) | payer OTHER ==
[2020-11-07] MEDS ORDERED: LACTATED RINGERS 1,000 ML IV SCH (12:15)
[2020-11-07 13:00] LABS: Bilirubin,Urine NEG (Negative); Blood,Urine NEG (Negative); Color,Urine Yellow (Yellow); Mucus,Urine FEW /HPF; Protein,Urine <15 mg/dL mg/dL (Negative); Urobilinogen,Urine < 2.0 mg/dL (<2.0)
[2020-11-07] MEDS ORDERED: TERBUTALINE 1 MG/1 ML INJ SUB-Q ONE (14:38)
[2020-11-07 15:42] VITALS: BP 115/65
== END 2020-11-07 15:45 | disposition home or self-care (01) ==
LOC: TRG 11:05 → APU 11:06 → TRG 15:45
PROVIDERS: ATTEND Obstetrics & Gynecology
DX: O26.893 Other specified pregnancy related conditions, third trimester (principal); R10.9 Unspecified abdominal pain; O47.03 False labor before 37 completed weeks of gestation, third trimester; Z3A.35 35 weeks gestation of pregnancy
CPT/HCPCS: 59025; 81001; 96360; 96361; 96372; J3105; J7120

== ENCOUNTER 2020-11-18 16:17 | Outpatient (CLI) | payer OTHER ==
[2020-11-18 17:00] VITALS: BP 106/67
[2020-11-18] MEDS ORDERED: LACTATED RINGERS 1,000 ML IV SCH (17:00)
[2020-11-18 17:24] LABS: Bilirubin,Urine NEG (Negative); Blood,Urine NEG (Negative); Color,Urine Yellow (Yellow); Protein,Urine <15 mg/dL mg/dL (Negative); RBC,Urine < 1.0 /HPF (0.0-6.0); WBC,Urine < 1.0 /HPF (0.0-6.0)
--- NOTE | 2020-11-18 18:06 | Ultrasound Report ---
ULTRASOUND OBSTETRIC LIMITED ULTRASOUND BIOPHYSICAL PROFILE INDICATION / CLINICAL INFORMATION: decreased movement. COMPARISON: None available. FINDINGS: BREATHING MOVEMENT = 2 GROSS BODY MOVEMENT = 2 TONE = 2 QUALITATIVE AMNIOTIC FLUID VOLUME = 2 TOTAL BIOPHYSICAL SCORE = 8/8 HEART RATE (beats per minute): 130 AMNIOTIC FLUID INDEX (cm) = 16.9 (normal = 7-24 cm) PRESENTATION: Cephalic. ADDITIONAL FINDINGS: None. IMPRESSION: 1. Biophysical Score = 8/8 Signer Name: Kavin Breger MD Signed: 11/18/2020 6:02 PM Workstation Name: [id number]
== END 2020-11-18 18:08 | disposition home or self-care (01) ==
LOC: TRG 16:17 → APU 16:24 → TRG 18:08
PROVIDERS: ATTEND Obstetrics & Gynecology
DX: O36.8130 Decreased fetal movements, third trimester, not applicable or unspecified (principal); Z3A.36 36 weeks gestation of pregnancy
CPT/HCPCS: 59025; 76815; 76819; 81001

== ENCOUNTER 2020-12-02 03:49 | Outpatient (CLI) | payer OTHER ==
[2020-12-02 04:16] VITALS: BP 115/66
[2020-12-02] MEDS ORDERED: LACTATED RINGERS 1,000 ML IV SCH (04:45)
[2020-12-02] MEDS: TERBUTALINE 1 MG/1 ML INJ SUB-Q PRN ×2 (05:05→05:39)
== END 2020-12-02 06:12 | disposition home or self-care (01) ==
LOC: TRG 03:49 → APU 03:50 → TRG 06:12
PROVIDERS: ATTEND Obstetrics & Gynecology
DX: O26.893 Other specified pregnancy related conditions, third trimester (principal); R10.9 Unspecified abdominal pain; Z3A.38 38 weeks gestation of pregnancy
CPT/HCPCS: 59025; 96360; 96361; 96372; J3105; J7120

== ENCOUNTER 2020-12-05 09:27 | Inpatient (IN) | payer OTHER ==
--- NOTE | 2020-12-05 07:48 | History and Physical Report ---
History of Present Illness Date of examination: 12/05/20 Chief complaint: scheduled section History of present illness: Pt is a 30 year old -British female VIKTOR 12/10/20 at 39w2d with a history of prior section who presents for repeat section. She reports irregular contractions and denies vaginal bleeding or leakage of fluid. She has had care at [facility] since 10 wks complicated by prior , constipation s/p GI consult, genital herpes without lesion or prodrome, left ovarian cysts, s/p betmethasone on 10/14 and 10/15. She is GBS positive. Past History Past Medical History: no pertinent history Past Surgical History: section (2017), [employer] History: chlamydia (remote from this ), herpes Family/Genetic History: none Social history: no significant social history - Obstetrical History Expected Date of Delivery: 12/10/20 Actual Gestation: 39 Week(s) 2 Day(s) : 6 Para: 1 Hx # Term Pregnancies: 1 Number of Pregnancies: 0 Spontaneous Abortions: 0 Induced : 4 Number of Living Children: 1 Medications and Allergies Allergies Allergy/AdvReac Type Severity Reaction Status Date / Time Sulfa (Sulfonamide Allergy Unknown Verified 09/20/17 11:14 Antibiotics) Home Medications Medication Instructions Recorded Confirmed Last Taken Type Cetirizine HCl [ZyrTEC] 10 mg PO QAM 7 Days #7 capsule 09/20/17 12/02/20 01/23/18 Rx 10 mg Pnv,Calcium 72/Iron/Folic Acid 1 tab PO DAILY 01/16/18 12/02/20 12/01/20 10:00 History [Pnv Plus Multivit Tab] Amoxicillin/Potassium Clav 1 each PO BID #14 tablet 01/20/18 12/02/20 01/24/18 Rx [Augmentin 875-125 Tablet] Ibuprofen [Motrin] 800 mg PO Q8HR PRN #30 tablet 01/20/18 12/02/20 01/24/18 Rx oxyCODONE /ACETAMINOPHEN [Percocet 1 tab PO Q6HR PRN #40 tablet 01/20/18 12/02/20 01/24/18 Rx 5/325] Butalb/Acetamin/Caff 50-325-40 1 tab PO Q6HR PRN #30 tab 01/26/18 12/02/20 Unknown Rx [Fioricet] Furosemide [Lasix TAB] 40 mg PO QDAY #7 tablet 01/26/18 12/02/20 Unknown Rx Review of Systems All systems: negative - Physical Exam Breasts: Positive: deferred Abdomen: Positive: soft (gravid ) Uterus: Positive: enlarged (gravid ) Extremities: Positive: normal - Obstetrical FHR: auscultation normal Uterine Contraction Monitor Mode: External Uterine Contraction Pattern: Irregular Uterine Tone Measurement Phase: Resting Uterine Contraction Intensity: Moderate Results All other labs normal. Assessment and Plan A: IUP at 39w2d Previous x 1 Constipation Genital Herpes without lesion or prodrome Ovarian Cyst GBS Positive P: Proceed with repeat section and other indicated procedures
[~2020-12-05 09:27] MED LIST: BICITRA ORAL LIQD 30ML PO NR; FAMOTIDINE 20 MG/2 ML INJ IV NR; LACTATED RINGERS 1,000 ML IV SCH; METOCLOPRAMIDE 10 MG/2 ML INJ IV NR; OXYTOCIN DRIP 30 UNITS/500 ML BAG IV SCH; ceFAZolin/Water 2 GM/20 ML 2 GM/20 ML SYRINGE IV NR
[2020-12-05] MEDS ORDERED: PROMETHAZINE 25 MG TAB PO PRN (10:30)
[2020-12-05] MEDS ORDERED: NALOXONE 0.4 MG/1 ML INJ IV PRN ×2 (10:30→16:47)
[2020-12-05] MEDS ORDERED: ONDANSETRON 4 MG/2 ML INJ IV PRN (10:30)
[2020-12-05] MEDS ORDERED: NalbUPHINE 10 MG/1 ML INJ IV PRN (10:30)
[2020-12-05] MEDS ORDERED: PROMETHAZINE 25 MG RECT SUPP PR PRN (10:30)
[2020-12-05] MEDS ORDERED: diphenhydrAMINE 50 MG/ML VIAL IV PRN (10:30)
[2020-12-05] MEDS ORDERED: HYDROmorphone 1 MG/1 ML INJ IV PRN (10:30)
[2020-12-05 10:59] LABS: Basophils % (Auto) 0.4 % (0.0-1.8); Eosinophils # (Auto) 0.1 K/mm3 (0.0-0.4); Eosinophils % (Auto) 1.1 % (0.0-4.3); Hematocrit 31.4 % (30.3-42.9); Hemoglobin 10.7 gm/dl (10.1-14.3); Lymphocytes # (Auto) 1.8 K/mm3 (1.2-5.4); Lymphocytes % (Auto) 21.4 % (13.4-35.0); Mean Corpuscular HGB Conc 34 % (30-34); Mean Corpuscular Volume 93 fl (79-97); Monocytes # (Auto) 0.6 K/mm3 (0.0-0.8); Monocytes % (Auto) 7.3 % (0.0-7.3); Platelet Count 145 K/mm3 (140-440); Red Blood Count 3.38 M/mm3 (3.65-5.03); Red Cell Distribution Width 15.1 % (13.2-15.2)
--- NOTE | 2020-12-05 11:34 | Anesthesia Consultation ---
Anesthesia Consult and Med Hx Date of service: 12/05/20 - Airway Anesthetic Teeth Evaluation: Good ROM Head & Neck: Adequate Mental/Hyoid Distance: Adequate Mallampati Class: Class I Intubation Access Assessment: Good - Pulmonary Exam CTA: Yes - Cardiac Exam Cardiac Exam: RRR - Pre-Operative Health Status ASA Pre-Surgery Classification: ASA2 Proposed Anesthetic Plan: Spinal Nerve Block: TAP - Pulmonary Hx Smoking: No Hx Asthma: No COPD: No Hx Pneumonia: No Hx Sleep Apnea: No - Cardiovascular System Hx Hypertension: No Hx Heart Attack/AMI: No Hx Angina: No - Central Nervous System Hx Seizures: No Hx Psychiatric Problems: No - Gastrointestinal Hx Gastroesophageal Reflux Disease: No - Endocrine Hx Renal Disease: No Hx End Stage Renal Disease: No Hx Liver Disease: No Hx Insulin Dependent Diabetes: No Hx Non-Insulin Dependent Diabetes: No Hx Hypothyroidism: No Hx Hyperthyroidism: No - Hematic Hx Anemia: No Hx Sickle Cell Disease: No - Other Systems Hx Alcohol Use: No
--- NOTE | 2020-12-05 11:34 | Anesthesia Day of Surgery ---
Anesthesia Day of Surgery - Day of Surgery Patient Examined: Yes Patient H&P Reviewed: Yes Patient is NPO: Yes Beta Blockers: No Cardiac Clearance: No Pulmonary Clearance: No Antonio's Test: N/A
[2020-12-05] MEDS ORDERED: miSOPROStol 200 MCG TAB ONE (12:27)
[2020-12-05] MEDS ORDERED: CARBOPROST TROMETHAMINE 250 MCG/1 ML INJ IM ONE (12:28)
[2020-12-05] MEDS ORDERED: METHYLERGONOVINE MALEATE 0.2 MG/ML VIAL IM ONE (12:28)
[2020-12-05] MEDS ORDERED: CARBOPROST TROMETHAMINE 250 MCG/1 ML INJ IM PRN (12:30)
[2020-12-05] MEDS ORDERED: miSOPROStol 200 MCG TAB PR PRN (12:30)
[2020-12-05] MEDS ORDERED: METHYLERGONOVINE MALEATE 0.2 MG/ML VIAL IM PRN (12:30)
[2020-12-05] MEDS ORDERED: ceFAZolin/STERILE WATER 2 GM/20 ML SYRINGE IV ONE (12:45)
--- NOTE | 2020-12-05 13:02 | Progress Note ---
Spinal Anesthesia Block - Spinal Anesthesia Block Start Time: 12:33 Stop Time: 12:47 Performed by:: EPI REYES (Diane Gongora [facility]) Procedure: Spinal anesthesia block is being performed for [C/S]. H&P, labs have been reviewed. Patient's questions and concerns have been answered. Informed consent has been performed. Timeout has was performed. Patient in sitting position on side of bed. Sterile prep and drape was performed. 3 mL 1% li docaine skin wheal at L [3]-L [4]. Needle introducer advanced. 25-gauge spinal needle advanced, [+] CSF [-] blood. [Marcaine 10mg and Precedex 5mcg] Spinal dose was given. All needles removed. Patient tolerated procedure well.
[2020-12-05] MEDS ORDERED: LACTATED RINGERS 1,000 ML ONE (13:03)
[2020-12-05] MEDS ORDERED: PHENYLEPHRINE/NS 1,000 MCG/10 ML SYRINGE (OR USE) IV ONE (13:03)
[2020-12-05] MEDS ORDERED: BUPIVACAINE/PF (0.5%) 5 MG/1 ML 30 ML VIAL INFILTRATI ONE (13:04)
[2020-12-05] MEDS ORDERED: dexAMETHasone 20 MG/5 ML VIAL ONE (13:04)
[2020-12-05] MEDS ORDERED: KETOROLAC 30 MG/1 ML INJ ONE (13:04)
[2020-12-05] MEDS ORDERED: ONDANSETRON 4 MG/2 ML INJ ONE (13:04)
--- NOTE | 2020-12-05 14:06 | Procedure Note ---
OB Delivery Note - Delivery Date of Delivery: 12/05/20 Surgeon: JAYE NOONAN Estimated blood loss: other (1129 mL from QBL) - Section Preop diagnosis: repeat Postop diagnosis: same section procedure: section, repeat low transverse Disposition: PACU Narrative: Please see delivery note. - Infant A at 1 minute: 8 at 5 minutes: 9 Gender: Male (3323g (7lb 5.2 oz) @ 1320 pm)
--- NOTE | 2020-12-05 14:11 | Operative Report ---
Operative Report Operative Report: Date of procedure: December 05, 2020 Preoperative diagnosis: 1) IUP art 39w2d 2) Previous section Postoperative diagnosis: Same Procedure: Repeat low transverse section Surgeon: Evangelina Gaytan M.D. Anesthesia: Regional Findings: 1) Viable male , Apgars 8 and 9, weight 3323 g, (7 lb 5.2 oz) in cephalic presentation. Meconium. 2) Normal-appearing uterus ovaries and tubes Estimated blood loss: 1129 mL by QBL IV fluids: 900 mL Urine output: 350 mL, clear at the end of the procedure Drains: Degroot to gravity Specimens: None Complications:None. Counts correct x 3 Disposition: Stable to PACU Indication for procedure: Pt is a 30 year old at 39w2d with one prior section presents for scheduled repeat section. Operation in detail: After the risks, benefits, alternatives and complications were explained to the patient she gave informed consent for the procedure. She was subsequently taken to the operating room where regional anesthesia was noted to be adequate. She was placed in the dorsal supine position with leftward tilt and prepped and draped in a normal sterile fashion. heart tones were noted prior to incision. A timeout was performed. A Pfannenstiel skin incision was made with the knife and carried down to the layer of the fascia with the Bovie. The fascia was incised in the midline and the fascial incision was extended bilaterally with the Bovie. The fascial incision was then stretched. The rectus muscles were then in the midline. The peritoneum was then entered sharply. The peritoneal incision was extended with good visualization of the bladder and was then stretched. An Stewart retractor was placed. The bladder blade was then placed. The vesicouterine peritoneum was grasped with smooth pick ups and incised with Metzenbaum scissors. A bladder flap was then created digitally and the bladder blade was replaced. A transverse incision was made in the lower uterine segment with a knife and extended bilaterally with the bandage scissors. Amniotomy was performed with egress of meconium stained fluid. head delivered with ease, followed by shoulders and body. bulb suctioned at delivery. Cord clamped and cut. handed to NICU staff in attendance. Cord blood was collected. The placenta was then delivered manually. The uterus was then exteriorized and cleared of all clots and debris. The hysterotomy was then reapproximated with 0 Monocryl in a running locked fashion. A second layer of the same suture was used in imbricating fashion. The hysterotomy was inspected and hemostasis was noted. The gutters were irrigated and cleared of all clots and debris. The hysterotomy was again inspected and noted to be hemostatic. Surgicel was placed over the hysterotomy. The Stewart retractor was removed. The uterus was placed back into the peritoneal cavity. The peritoneum was reapproximated with 2-0 Vicryl in a running fashion incorporating the rectus muscles. Surgicel was placed over the rectus muscles. The fascia was reapproximated with 0 Vicryl in a running fashion. The s ubcutaneous tissue was reapproximated with 3-0 Vicryl in a running fashion. The skin was reapproximated with 4-0 Vicryl in a subcuticular fashion. The incision was then covered with steri strips and a pressure dressing. The procedure was then ended. The patient tolerated the procedure well and was taken to the PACU in stable condition. All instrument, lap, and needle counts were correct 3.
--- NOTE | 2020-12-05 14:44 | Progress Note ---
Regional Anesthesia Block - Regional Anesthesia Block Start Time: 14:16 Stop Time: 14:21 Performed By:: EPI REYES (Diane LEE) Procedure: Patient consented for TAP block for post surgical pain management. Patient identified, monitors placed, and time out performed. Mid axillary TAP identified bilaterally via ultrasound. Skin prepped bilaterally with [chlorhexidine] and [20g stimuplex] needle advanced to the TAP. 30ml [Marcaine 0.25% with 25mcg Precedex and Decadron 5mg] injected under ultrasound guidance on the [left] side. 30ml [Marcaine 0.25% with 25mcg Precedex and Decadron 5mg] injected under ultrasound guidance on the [right] side. Negative aspiration every 5mL, Patient tolerated the procedure well. No apparent complications seen.
[2020-12-05] MEDS ORDERED: OXYTOCIN DRIP 30 UNITS/500 ML BAG IV SCH (16:47)
[2020-12-05] MEDS ORDERED: MORPHINE 2 MG/1 ML INJ IV PRN (16:47)
[2020-12-05] MEDS ORDERED: SIMETHICONE 80 MG CHEW TAB PO PRN (16:47)
[2020-12-05] MEDS ORDERED: LANOLIN/ZINC/DIMETHICONE (LANSINOH) 7 GM TP PRN (16:47)
[2020-12-05] MEDS ORDERED: MORPHINE 4 MG/1 ML INJ IV PRN (16:47)
[2020-12-05] MEDS ORDERED: WITCH HAZEL/ GLYCERIN PAD TP PRN (16:47)
[2020-12-05] MEDS ORDERED: MAGNESIUM HYDROXIDE (MOM) ORAL LIQD UDC PO PRN (16:47)
[2020-12-05] MEDS: KETOROLAC 30 MG/1 ML INJ IV SCH (19:10)
[2020-12-05] MEDS: LACTATED RINGERS 1,000 ML IV SCH (19:15)
[2020-12-05] MEDS: ceFAZolin/NS 1 GM/50 ML 1 GM/50 ML BAG IV SCH (20:15)
[2020-12-05] MEDS: oxyCODONE /ACETAMINOPHEN 5-325MG TAB PO PRN (23:39)
[2020-12-06] MEDS: IBUPROFEN 800 MG TAB PO SCH ×2 (00:40→06:27)
[2020-12-06 02:40] LABS: Hematocrit 28.8 % (30.3-42.9); Hemoglobin 9.9 gm/dl (10.1-14.3)
[2020-12-06] MEDS: LACTATED RINGERS 1,000 ML IV SCH (03:29)
[2020-12-06] MEDS: KETOROLAC 30 MG/1 ML INJ IV SCH ×2 (03:37→13:40)
[2020-12-06] MEDS: ceFAZolin/NS 1 GM/50 ML 1 GM/50 ML BAG IV SCH (03:37)
[2020-12-06] MEDS ORDERED: TETANUS,DIPH,PERTUSS(ACELL) VACCINE 0.5 ML SYRINGE IM ONE (06:00)
--- NOTE | 2020-12-06 08:55 | Progress Note ---
Assessment and Plan A: POD#1 s/p repeat at term Acute blood loss anemia P: Routine postoperative advances Subjective - Subjective Date of service: 12/06/20 Principal diagnosis: POD#1 s/p repeat section Interval history: No overnight events. Passed flatus. Decreasing lochia. Patient reports: appetite normal, voiding normally, pain well controlled, flatus, ambulating normally, no bowel movement [place]: doing well Objective - Vital Signs Latest vital signs: Vital Signs Temp Pulse Resp BP BP Pulse Ox 12/06/20 08:10 98.1 F 18 110/73 12/06/20 06:05 97.8 F 75 18 126/86 97 12/06/20 02:01 97.8 F 78 18 107/72 96 12/05/20 23:39 18 12/05/20 20:30 97.9 F 84 16 113/75 98 12/05/20 16:39 98.5 F 97 H 112/76 98 12/05/20 15:25 81 15 110/69 97 12/05/20 15:10 97.8 F 76 14 114/72 98 12/05/20 14:55 77 12 113/81 99 12/05/20 14:40 71 12 118/82 98 12/05/20 14:25 72 14 110/73 99 12/05/20 14:20 73 14 110/67 99 12/05/20 14:15 75 14 106/65 99 12/05/20 14:10 97.6 F 86 15 111/62 100 12/05/20 11:28 94 H 99 12/05/20 11:23 96 H 99 12/05/20 11:18 94 H 100 12/05/20 11:13 94 H 99 12/05/20 11:08 88 99 12/05/20 11:03 94 H 100 12/05/20 10:58 92 H 100 12/05/20 10:53 90 99 12/05/20 10:48 92 H 99 12/05/20 10:43 93 H 99 12/05/20 10:38 92 H 99 12/05/20 10:33 90 99 12/05/20 10:28 97 H 99 12/05/20 10:23 95 H 99 12/05/20 10:18 99 H 98 12/05/20 10:13 96 H 98 12/05/20 10:08 98 H 98 12/05/20 10:03 94 H 98 12/05/20 09:58 95 H 98 12/05/20 09:55 98.3 F 20 Intake and Output 12/05/20 12/06/20 12/06/20 22:59 06:59 14:59 Intake Total 480 1480 320 Output Total 1400 600 Balance -920 880 320 Intake: IV 200 1000 ANCEF/NS 1 GM/50 ML 1 gm 50 In 50 ml @ 100 mls/hr IV Q8H [facility] Rx#:[id number] Lactated Ringers 1,000 ml 1000 @ 125 mls/hr IV DIRECT [facility] Rx#:[id number] Oral 320 Intake, Free Water 280 480 Output: Urine 1400 600 Indwelling Catheter 700 Uretheral (Degroot) 600 200 Void 400 Other: Total, Intake Amount 320 Total, Output Amount 700 400 - Exam Breasts: Present: deferred Abdomen: Present: soft Uterus: Present: fundal height at umbilicus Extremities: Present: edema (trace ) Incision: Present: dressed - Labs Labs: Abnormal lab results 12/05/20 12/06/20 Range/Units 10:30 02:25 RBC 3.38 L (3.65-5.03) M/mm3 Hgb 9.9 L (10.1-14.3) gm/dl Hct 28.8 L (30.3-42.9) %
--- NOTE | 2020-12-06 09:18 | Post Anesthesia Evaluation ---
- Post Anesthesia Evaluation Patient Participated: Yes Airway Patent: Yes Stable Respiratory Function: Yes Nausea/Vomiting: No Temp > 96.8F: Yes Pain Manageable: Yes Adequeate Hydration: Yes Anesthesia Complications: No Block Receding Appropriately: Yes Patient on Ventilator: No
[2020-12-06] MEDS: oxyCODONE /ACETAMINOPHEN 5-325MG TAB PO PRN ×3 (09:25→21:55)
[2020-12-06] MEDS: FERROUS SULFATE 325 MG TAB PO SCH (09:26)
[2020-12-06] MEDS ORDERED: MEASLES, MUMPS & RUBELLA 12,500 UNIT/0.5 ML VACCINE SUB-Q ONE (14:22)
[2020-12-07] MEDS: IBUPROFEN 800 MG TAB PO SCH ×4 (00:10→15:30)
[2020-12-07] MEDS: MAGNESIUM HYDROXIDE (MOM) ORAL LIQD UDC PO SCH ×3 (00:17→17:56)
[2020-12-07] MEDS: oxyCODONE /ACETAMINOPHEN 5-325MG TAB PO PRN ×2 (04:00→13:05)
[2020-12-07] MEDS ORDERED: TETANUS,DIPH,PERTUSS(ACELL) VACCINE 0.5 ML SYRINGE IM ONE (06:00)
[2020-12-07] MEDS: FERROUS SULFATE 325 MG TAB PO SCH (12:00)
--- NOTE | 2020-12-07 12:13 | Progress Note ---
Assessment and Plan A: POD#2 s/p repeat at term Acute blood loss anemia Lower extremity edema P: Routine postoperative advances Bowel regimen Lasix 40 mg IV once Anticipate discharge tomorrow Subjective - Subjective Date of service: 12/07/20 Principal diagnosis: POD#2 s/p repeat section Interval history: Pt is tearful due to social stress from first son's father. Otherwise no complaints. Patient reports: appetite normal, voiding normally, pain well controlled, flatus, ambulating normally, no bowel movement : doing well Objective - Vital Signs Latest vital signs: Vital Signs Temp Pulse Resp BP BP Pulse Ox 12/07/20 07:57 98.0 F 96 H 18 110/70 96 12/06/20 23:15 98.3 F 92 H 20 110/70 97 12/06/20 17:02 16 12/06/20 16:40 98.9 F 89 20 114/62 12/06/20 13:40 16 Intake and Output 12/06/20 12/07/20 12/07/20 22:59 06:59 14:59 Intake Total 360 Output Total 600 Balance -240 Intake: Oral 360 Output: Urine 600 Void 600 Other: Total, Intake Amount 240 Total, Output Amount 600 - Exam Breasts: Present: deferred Abdomen: Present: soft, distention (moderate ) Uterus: Present: fundal height at umbilicus Extremities: Present: edema (2+ ) Incision: Present: dressed
[2020-12-07] MEDS ORDERED: FUROSEMIDE 40 MG/4 ML INJ IV NR (12:23)
[2020-12-08] MEDS: oxyCODONE /ACETAMINOPHEN 5-325MG TAB PO PRN (00:20)
[2020-12-08] MEDS: IBUPROFEN 800 MG TAB PO SCH ×2 (01:32→12:45)
--- NOTE | 2020-12-08 07:51 | Progress Note ---
Assessment and Plan - Patient Problems (1) delivery delivered Current Visit: No Status: Acute Plan to address problem: patient doing better will give some MOM for BM Subjective - Subjective Date of service: 12/08/20 Principal diagnosis: POD#2 s/p repeat section Interval history: Patient reports having some pain last night. She has not had a BM yet. Pain is better controlled Patient reports: appetite normal, voiding normally : doing well Objective - Vital Signs Latest vital signs: Vital Signs Temp Pulse Resp BP Pulse Ox 12/08/20 01:32 12 12/08/20 00:20 12 12/07/20 23:44 98.5 F 105 H 16 121/80 97 12/07/20 07:57 98.0 F 96 H 18 110/70 96 Intake and Output 12/07/20 12/08/20 12/08/20 22:59 06:59 14:59 Intake Total 480 220 Balance 480 220 Intake: Intake, Free Water 480 220 Other: # Voids Void 1 1 - Exam Uterus: Present: normal, firm
--- NOTE | 2020-12-08 07:54 | Discharge Summary ---
Providers - Providers Date of Admission: 12/05/20 09:27 Date of discharge: 12/08/20 Attending physician: JAYE NOONAN 12/05/20 16:47 Consult to [employer] [CONS] Routine Reason For Exam: Primary care physician: LUKASZ WILDE MD Hospitalization Reason for admission: other ( delivery) Delivery: Procedure: section, repeat low transverse Discharge diagnosis: IUP at term delivered Hospital course: Patient admitted for scheduled . Postop uneventful Condition at discharge: Good Disposition: DC-01 TO HOME OR SELFCARE - Discharge Diagnoses (1) delivery delivered Status: Acute Plan - Discharge Medications Prescriptions: Ferrous Sulfate [Feosol 325 MG tab] 325 mg PO BID #60 tablet Ibuprofen [Motrin] 800 mg PO Q8HR PRN #30 tablet PRN Reason: Pain, Moderate (4-6) oxyCODONE /ACETAMINOPHEN [Percocet 5/325] 1 tab PO Q6HR PRN #40 tablet PRN Reason: Pain - Provider Discharge Summary Activity: no sex for 6 weeks, no heavy lifting 4 weeks, no strenuous exercise Diet: routine Instructions: routine Additional instructions: [] Smoking cessation referral if applicable(refer to patient education folder for contact #) [] Refer to [facility] Booklet Call your doctor immediately for: * Fever > 100.5 * Heavy vaginal bleeding ( >1 pad per hour) * Severe persistent headache * Shortness of breath * Reddened, hot, painful area to leg or breast * Drainage or odor from incision. * Keep incision clean and dry at all times and follow doctor's instructions regarding bathing/showering Schedule postop check in 2 weeks - Follow up plan Forms: [facility] Discharge Summary
[2020-12-08] MEDS: MAGNESIUM HYDROXIDE (MOM) ORAL LIQD UDC PO SCH (08:07)
[2020-12-08] MEDS: FERROUS SULFATE 325 MG TAB PO SCH (10:20)
[2020-12-08 12:35] VITALS: BP 116/73
== END 2020-12-08 13:45 | disposition home or self-care (01) | DRG 765 ==
LOC: APU 09:27 → OB 15:41
PROVIDERS: ADMIT Obstetrics & Gynecology; ATTEND Obstetrics & Gynecology
PROC: 10D00Z1 Extraction of Products of Conception, Low, Open Approach (ICD-10-PCS; principal; 2020-12-05)
PROC: 3E0234Z Introduction of Serum, Toxoid and Vaccine into Muscle, Percutaneous Approach (ICD-10-PCS; 2020-12-06)
PROC: 3E0134Z Introduction of Serum, Toxoid and Vaccine into Subcutaneous Tissue, Percutaneous Approach (ICD-10-PCS; 2020-12-06)
DX: O34.211 Maternal care for low transverse scar from previous cesarean delivery (principal); O98.32 Other infections with a predominantly sexual mode of transmission complicating childbirth; D62 Acute posthemorrhagic anemia; O90.81 Anemia of the puerperium; A60.09 Herpesviral infection of other urogenital tract; O99.824 Streptococcus B carrier state complicating childbirth; O34.83 Maternal care for other abnormalities of pelvic organs, third trimester; N83.209 Unspecified ovarian cyst, unspecified side; Z3A.39 39 weeks gestation of pregnancy; Z37.0 Single live birth; Z88.2 Allergy status to sulfonamides; Z23 Encounter for immunization
CPT/HCPCS: 36415; 59025; 85014; 85018; 85025; 86850; 86900; 86901; 96360; 96374; 99211; G0378; G0463; J0690; J1100; J1885; J1940; J2370; J2405; J2765; J3490; J7120; U0003

== ENCOUNTER 2021-01-12 17:22 | Inpatient (IN) | payer OTHER ==
[2021-01-12] MEDS ORDERED: CALCIUM GLUCONATE 1000 MG/10 ML INJ IV SCH (17:24)
[2021-01-12 20:27] LABS: Hematocrit 40.7 % (30.3-42.9); Hemoglobin 13.1 gm/dl (10.1-14.3); Mean Corpuscular HGB Conc 32 % (30-34); Mean Corpuscular Volume 92 fl (79-97); Platelet Count 267 K/mm3 (140-440); Red Blood Count 4.44 M/mm3 (3.65-5.03); Red Cell Distribution Width 13.7 % (13.2-15.2)
[2021-01-12] MEDS ORDERED: MAGNESIUM SULFATE 4 GM/100 ML BAG IV ONE (21:24)
[2021-01-12] MEDS: LACTATED RINGERS 1,000 ML IV SCH (21:26)
[2021-01-12 21:52] LABS: Alanine Aminotransferase 13 units/L (7-56)
[2021-01-12] MEDS: MAGNESIUM SULFATE 40GM/1000ML 40 GM/1,000 ML BAG IV SCH (21:59)
[2021-01-12] MEDS ORDERED: BUTALB/ACETAMINOPHEN/CAFFEINE TAB PO PRN (22:17)
[2021-01-12] MEDS ORDERED: BUTALB/ACETAMINOPHEN/CAFFEINE TAB PO ONE (22:42)
--- NOTE | 2021-01-13 00:34 | History and Physical Report ---
History of Present Illness Date of examination: 01/13/21 Date of admission: 01/12/21 19:59 Chief complaint: headache, sent from the office with high blood pressure History of present illness: Pt is a 30 year old -[place] s/p repeat section on 12/10/20 who presents from the office with elevated blood pressures 150-160s/90-100s and headache for treatment of preeclampsia. She has no other complaints including chest pain, dyspnea, scotomata or RUQ pain. Past History Past Medical History: no pertinent history Past Surgical History: section (2017, 2020 ), [employer] History: chlamydia, herpes Family/Genetic History: none Social history: no significant social history - Obstetrical History : 6 Para: 2 Hx # Term Pregnancies: 2 Number of Pregnancies: 0 Spontaneous Abortions: 0 Induced : 4 Number of Living Children: 2 Medications and Allergies Allergies Allergy/AdvReac Type Severity Reaction Status Date / Time Sulfa (Sulfonamide Allergy Unknown Verified 09/20/17 11:14 Antibiotics) Home Medications Medication Instructions Recorded Confirmed Last Taken Type Cetirizine HCl [ZyrTEC] 10 mg PO QAM 7 Days #7 capsule 09/20/17 01/12/21 01/23/18 Rx 10 mg Pnv,Calcium 72/Iron/Folic Acid 1 tab PO DAILY 01/16/18 01/12/21 01/11/21 21:00 History [Pnv Plus Multivit Tab] Amoxicillin/Potassium Clav 1 each PO BID #14 tablet 01/20/18 01/12/21 01/24/18 Rx [Augmentin 875-125 Tablet] oxyCODONE /ACETAMINOPHEN [Percocet 1 tab PO Q6HR PRN #40 tablet 01/20/18 0 01/12/21 01/24/18 Rx 5/325] Butalb/Acetamin/Caff 50-325-40 1 tab PO Q6HR PRN #30 tab 01/26/18 01/12/21 Unknown Rx [Fioricet] Furosemide [Lasix TAB] 40 mg PO QDAY #7 tablet 01/26/18 01/12/21 Unknown Rx Ferrous Sulfate [Feosol 325 MG tab] 325 mg PO BID #60 tablet 12/06/20 01/12/21 01/11/21 21:00 Rx Ibuprofen [Motrin] 800 mg PO Q8HR PRN #30 tablet 12/06/20 01/12/21 Unknown Rx oxyCODONE /ACETAMINOPHEN [Percocet 1 tab PO Q6HR PRN #40 tablet 12/06/20 01/12/21 Unknown Rx 5/325] Ibuprofen [Motrin] 600 mg PO Q8HR PRN 01/12/21 01/12/21 01/11/21 21:00 History Active Meds: Active Medications Acetaminophen (Acetaminophen 325 Mg Tab) 650 mg PO Q6H PRN PRN Reason: Pain, Mild (1-3) Acetaminophen/Butalbital/Caffeine (Butalb/Acetaminophen/Caffeine Tab) 2 tab PO Q4H PRN PRN Reason: Headache Calcium Gluconate (Calcium Gluconate 1000 Mg/10 Ml Inj) 1,000 mg IV ONCE CIERRA Hydralazine HCl (Hydralazine 20 Mg/1 Ml Inj) 5 mg IV Q30MIN PRN PRN Reason: Hypertension Lactated Ringer's (Lactated Ringers) 1,000 mls @ 125 mls/hr IV DIRECT CIERRA Last Admin: 01/12/21 21:26 Dose: 75 mls/hr Documented by: Magnesium Sulfate (Magnesium Sulfate 40gm/1000ml) 40 gm in 1,000 mls @ 50 mls/hr IV DIRECT CIERAR Last Admin: 01/12/21 21:59 Dose: 2 gm/hr, 50 mls/hr Documented by: Review of Systems All systems: negative - Vital Signs Vital signs: Vital Signs Pulse BP 83 163/102 01/12/21 20:16 01/12/21 20:16 Temp Pulse Resp BP Pulse Ox 98.8 F 65 16 142/90 100 01/12/21 20:22 01/13/21 00:33 01/12/21 20:22 01/13/21 00:22 01/13/21 00:33 - Physical Exam Breasts: Positive: deferred Abdomen: Positive: soft Extremities: Positive: edema Results Result Diagrams: 01/12/21 20:12 01/12/21 20:12 All other labs normal. Assessment and Plan A: Preeclampsia P: Admit to labor and delivery Administer Magnesium sulfate for seizure prophylaxis Fioricet for headache with light sensitivity Antihypertensives Closely monitor clinical status
[2021-01-13 01:09] LABS: Uric Acid 4.1 mg/dL (3.5-7.6)
[2021-01-13 04:00] LABS: Bilirubin,Urine NEG (Negative); Blood,Urine NEG (Negative); Color,Urine Straw (Yellow); Mucus,Urine FEW /HPF; Protein,Urine <15 mg/dL mg/dL (Negative); Urobilinogen,Urine < 2.0 mg/dL (<2.0); WBC,Urine < 1.0 /HPF (0.0-6.0)
[2021-01-13] MEDS: LACTATED RINGERS 1,000 ML IV SCH (11:00)
[2021-01-13] MEDS: MAGNESIUM SULFATE 40GM/1000ML 40 GM/1,000 ML BAG IV SCH (11:00)
[2021-01-13] MEDS ORDERED: MAGNESIUM SULFATE 40GM/1000ML 40 GM/1,000 ML BAG IV SCH (11:00)
[2021-01-13] MEDS: hydrALAZINE 20 MG/1 ML INJ IV PRN ×2 (15:07→17:15)
[2021-01-13] MEDS: ACETAMINOPHEN 325 MG TAB PO PRN (22:35)
--- NOTE | 2021-01-14 09:34 | Discharge Summary ---
Providers - Providers Date of Admission: 01/12/21 19:59 Date of discharge: 01/14/21 (1300) Attending physician: JAYE NOONAN Primary care physician: JAYE NOONAN Hospitalization Reason for admission: other (Post- hypertension) complications: other (Hypertension) Hospital course: Pt is a 30 year old -[place] s/p repeat section on 12/10/20 who presents from the office with elevated blood pressures 150-160s/90-100s and headache for treatment of preeclampsia. She has no other complaints including chest pain, dyspnea, scotomata or RUQ pain. Magnesium initiated. Condition at discharge: Stable Disposition: DC- TO HOME OR SELFCARE - Discharge Diagnoses (1) hypertension Status: Acute Plan - Discharge Medications Prescriptions: labetaloL [Labetalol 200mg TAB] 400 mg PO BID 14 Days #28 tablet - Provider Discharge Summary Activity: routine, no sex for 6 weeks, no heavy lifting 4 weeks, no strenuous exercise Diet: routine Instructions: routine Additional instructions: [] Smoking cessation referral if applicable(refer to patient education folder for contact #) [] Refer to [facility] Booklet Call your doctor immediately for: * Fever > 100.5 * Heavy vaginal bleeding ( >1 pad per hour) * Severe persistent headache * Shortness of breath * Reddened, hot, painful area to leg or breast * Follow up at office in 3 days for B/P check - Follow up plan Follow up: JAYE NOONAN MD [Primary Care Provider] - 3 Days
[2021-01-14] MEDS: ACETAMINOPHEN 325 MG TAB PO PRN (12:03)
[2021-01-14 15:04] VITALS: BP 99/55
== END 2021-01-14 14:30 | disposition home or self-care (01) | DRG 776 ==
LOC: 3A 17:22 → UNDOADMIN 17:22 → LD 19:59 → OB 01-13 23:05
PROVIDERS: ADMIT Obstetrics & Gynecology; ATTEND Obstetrics & Gynecology
DX: O14.95 Unspecified pre-eclampsia, complicating the puerperium (principal)
CPT/HCPCS: 36415; 81001; 82565; 83615; 83735; 84450; 84460; 84550; 85027; G0378; J0360; J3475; J7120